=== PATIENT | female | born 1990 | race Caucasian/White ===

== ENCOUNTER → 2018-07-26 18:49 | Outpatient (CLI) | payer SELFPAY | PROVIDERS: Family Provider Student in an Organized Health Care Education/Training Program; PCP Student in an Organized Health Care Education/Training Program; Referring Provider Family Medicine; Visit Provider Family Medicine | DX: L72.9 Follicular cyst of the skin and subcutaneous tissue, unspecified (principal) | CPT/HCPCS: 87070; 87205 ==

== ENCOUNTER → 2018-09-04 13:01 | Outpatient (CLI) | payer BC, SELFPAY ==
--- NOTE | 2018-09-04 13:09 | VDLE_ITS ---
Reason For Study: Leg Pain RIGHT LEFT CFV is compressible, spontaneous, phasic, CFV is compressible, spontaneous, phasic, competent and demonstrates normal competent, and demonstrates normal augmentation. augmentation. FV is compressible, spontaneous, phasic, FV is compressible, spontaneous, phasic, competent and demonstrates normal competent and demonstrates normal augmentation. augmentation. POP V is compressible, spontaneous, phasic, POP V is compressible, spontaneous, phasic, competent and demonstrates normal competent and demonstrates normal augmentation. augmentation. T/P Trunk is compressible. T/P Trunk is compressible. PTV is compressible. PTV is compressible. RT PerV is compressible. LT PerV is compressible. SFJ is competent. SFJ is competent. GSV is competent. GSV above knee is competent. SSV is competent. GSV below knee is INCOMPETENT for greater Procedure than 0.5 seconds and measures 0.22 x 0.20 cm. Exam performed in department. SSV is competent. Interpretation Summary Deep veins of the lower extremities are bilaterally patent and compressible segmentally. There is no evidence of deep vein thrombosis on either side. Valvular competence appears intact within the proximal deep venous systems bilaterally. The greater saphenous veins appear bilaterally patent and compressible segmentally. Sapheno-femoral junctions are bilaterally competent . The right greater saphenous vein appears segmentally competent. The left greater saphenous vein appears competent above the knee. The left greater saphenous vein appears incompetent below the knee. Small saphenous veins are patent and competent bilaterally. Ordering Physician: Mitul Mendenhall Referring Physician: Tereso Lozada Performed By: Kriss Woods RVT and Student
--- OUTSIDE RECORDS SUMMARY | 2018-10-21 16:42 | XMS RPT_ITS ---
:1990 Author Organization [facility] Care Team Providers Name Role Phone Adalberto Wills Attending Unavailable Mitul Mendenhall Referring Unavailable Adalberto Wills Attending Unavailable Adalberto Wills Referring Unavailable Tereso Lozada Primary Care Unavailable ASSESSMENT, HEALTH RISK Attending Unavailable Jf France Primary Care Unavailable Tereso Lozada Attending Unavailable Jf France Primary Care Unavailable Tereso Lozada Referring Unavailable Mitul Mendenhall Attending Unavailable Mitul Mendenhall Referring Unavailable Tereso Lozada Primary Care Unavailable PROBLEMS PROBLEMS DATE TYPE CONDITION / CODE ATTENDING STATUS SOURCE 09/24/2018 Unknown R22.42 - Localized Adalberto Wills Active Cl swelling, mass and Community lump, left lower Hospital limb / Repository R22.42(ICD-10) 07/27/2018 Unknown L72.9 - Follicular Tereso Lozada Active Cl cyst of the skin Community and subcutaneous Hospital tissue, Repository unspecified / L72.9(ICD-10) PROCEDURES PROCEDURES No Procedure Records FoundRESULTS RESULTS SURGERY VISIT REPORT Observed: 09/24/2018 Status: F Source: BUENA 3:45 PM [facility] REPOSITORY [facility] [address] [place] [address] OFFICE VISIT Date of Service: 09/24/18 MR#: [id number] Acct: [id number] Name: IFRAH QUINTEROS Rep #: [id number] : 1990 Provider: Adalberto Wills MD Age/Sex: 28/F Location: [facility] Status: Signed Intake Vital Signs09/24/18 Height 5 ft 6 in 09/24/18 Weight: 289 lb 09/24/18 Body Mass Index (BMI) 46.6 Intake Visit Reasons: Lipoma L Calf Production Support Specialist Required: No Is patient in pain?: No Allergies No Known Allergies Allergy (Verified 09/24/18 14:21) Medications ibuprofen 200 mg tablet 200 mg PO TID-QID PRN 09/24/18 [History Confirmed 09/24/18] PFSH Medical History Heart palpitations (Acute) Back problem (Acute) Surgical History History of (Acute) Hx of tonsillectomy (Acute) Family History Father Hypertension Heart disease Social History Smoking Status: Never smoker second hand exposure: No alcohol intake: current alcohol intake frequency: a few times a month substance use type: does not use caffeine: Yes frequency: 1-2 times per week seatbelt use: always HPI HPI HPI: FIRAH QUINTEROS, is a 28 F who presents to the office today for surgical consultation regarding the possibility of a lipoma of the left posterior calf. The patient's primary care physician Dr. Tereso Lozada. She is recently seen Dr. Mitul Mendenhall regarding the possibility of venous insufficiency. The patient states that as long as she can remember her left lower extremity particularly her left calf has been larger than her right. She will occasionally get tingling uncomfortable sensation in the left posterior calf. She states that she finds it difficult to find appropriate fitting clothing is because of the size of her. She was seen by Dr. Mitul Mendenhall regarding venous insufficiency. On September 04, 2018 at the [facility] a bilateral lower extremity venous duplex exam was performed. There is no evidence of bilateral deep venous thrombosis. The right lower extremity great and small saphenous veins are competent. The left lower extremity shows that the great saphenous vein is incompetent for greater than 0.5 seconds below the knee but it only measures 0.22 x 0.2 cm. The small saphenous vein is competent. The patient instructs me that her mother has had lipomas diagnosed with several removed. The patient has tentatively been given the diagnosis of a potential left calf lipoma as the source of her discomfort. She states that she can feel a focal ball type mass. She has not had any detailed imaging of the left lower extremity particularly the left calf other than the very recent ultrasound where that area was inspected but at least on the duplex imaging no specific comment was made of a focal mass Additional physical findings include body weight 289 pounds with a BMI of 46.6 ROS General General: Yes weight change; no appetite, fatigue, colon cancer, breast cancer or weakness HEENT HEENT: No difficulty swallowing, eye injury, eye surgery, swollen glands or hoarseness Endo Endocrine: No thyroid disease, diabetes mellitus, thyroid cancer, Hair loss, heat intolerance or cold intolerance Skin Skin: Yes changing moles; no rash Musc Musculoskeletal: Yes back problems; no arthritis, rheumatoid arthritis, gout or joint pain Cardio Cardiovascular: No murmur, pacemaker, heart disease, atrial fibrillation, high blood pressure, heart attack, heart stent, palpitations, shortness of breat with exertion or chest pain Psych Psychiatric: No depression, anxiety or hearing voices Resp Respiratory: No shortness of breath, No sleep apnea, No cough, No COPD, No asthma, No emphysema, No wheezing Gastro Gastrointestinal: No abdominal pain, No nausea or vomiting, No diarrhea, No constipation, No blood in stool, No acid reflux, No hemorrhoids, No ulcers, No gallbladder problem, No black,tarry stools Manjeet Hematologic: No blood thinners, No blood disorders, No bleeding, No anemia, No blood clots Neuro Neurologic: No weakness, Yes tingling Exam Cardio Heart Sounds: no murmurs Extrem Other: The patient directs me to the left posterior lateral calf mid to more proximally. There appears to be diffuse enlargement of bilateral lower extremities to a significant degree. The left calf certainly is more prominent than the right. I am not able to focally palpate a distinct mass. There is no erythema. No palpable cords. No distinct tenderness upon palpation. Assessment AND Plan Problems 1. Pain of left calf M79.662 Plan 28-year-old female with concerns about tingling and discomfort and possible mass left posterior calf. Apparently according by history the patient has had enlargement of the left lower extremity greater than the right for an extended period of time. I have expressed significant concerns regarding operating on her left lower extremity particularly if a focal mass cannot be determined. I believe that she would be at increased risk for a seroma and wound breakdown and cellulitis. I believe that CT imaging of the site left calf to elucidate the possibility of a mass would be pertinent. I suppose the patient might be a candidate for plastic surgery referral if significant tissue reduction is deemed to be pertinent. She has had an opportunity to ask and have questions answered. We will pursue the CT and then provide further general surgical input as indicated. I appreciate the opportunity of assisting with her surgical care Adalberto Wills M.D., F.A.C.S. Orders Orders: Coding Level of Care Code Off vis,new,level 2 Diagnoses Pain of left calf M79.662 09/24/18 1545 <Electronically signed by Adalberto Wills MD> Date Adalberto Wills MD Cosigner Signature: Date (if applicable) CC: Mitul Mendenhall MD; Tereso Lozada MD VENOUS DUPLEX LOWER Observed: 09/04/2018 Status: F Source: BUENA EXTREMITY 9:56 PM [facility] REPOSITORY [facility] [address] [place] [address] Venous Duplex US - David Extrem 09/04/18 1311 MR#: [id number] Acct: [id number] Name: IFRAH QUINTEROS Rep #: [id number] : 1990 28 From: Mitul Mendenhall MD Attending Dr: Mitul Mendenhall MD Status: REG CLI Ordering Dr: Mitul Mendenhall MD Date: 09/04/18 Location: [facility] Sex: F C Admitted: Reason For Study: Leg Pain RIGHT LEFT CFV is compressible, spontaneous, phasic, CFV is compressible, spontaneous, phasic, competent and demonstrates normal competent, and demonstrates normal augmentation. augmentation. FV is compressible, spontaneous, phasic, FV is compressible, spontaneous, phasic, competent and demonstrates normal competent and demonstrates normal augmentation. augmentation. POP V is compressible, spontaneous, phasic, POP V is compressible, spontaneous, phasic, competent and demonstrates normal competent and demonstrates normal augmentation. augmentation. T/P Trunk is compressible. T/P Trunk is compressible. PTV is compressible. PTV is compressible. RT PerV is compressible. LT PerV is compressible. SFJ is competent. SFJ is competent. GSV is competent. GSV above knee is competent. SSV is competent. GSV below knee is INCOMPETENT for greater Procedure than 0.5 seconds and measures 0.22 x 0.20 cm. Exam performed in department. SSV is competent. Interpretation Summary Deep veins of the lower extremities are bilaterally patent and compressible segmentally. There is no evidence of deep vein thrombosis on either side. Valvular competence appears intact within the proximal deep venous systems bilaterally. The greater saphenous veins appear bilaterally patent and compressible segmentally. Sapheno-femoral junctions are bilaterally competent . The right greater saphenous vein appears segmentally competent. The left greater saphenous vein appears competent above the knee. The left greater saphenous vein appears incompetent below the knee. Small saphenous veins are patent and competent bilaterally. Ordering Physician: Mitul Mendenhall Referring Physician: Tereso Lozada Performed By: Kriss Woods RVT and Student 09/04/182155 Date Mitul Mendenhall MD CC: Mitul Mendenhall MD; Tereso Lozada MD Date Dictated: 09/04/18 1311 Date Transcribed: 09/04/182155 Routing Clerk: Signed Observed: 07/26/2018 Status: F Source: CL CULTURE, WOUND 4:25 PM [facility] REPOSITORY Gram Stain Gram Stain 1+ White Blood Cells No organisms seen Wound Culture No growth aerobically. Performed By: #### M100.1400 #### [facility] [address] [place], [place], [address] LIPID PROFILE Collected: 07/10/2018 Status: F Source: CL 8:10 AM [facility] REPOSITORY TYPE CODE TESTS RESULT OUT OF RANGE REFERENCE UNITS LAB L501.4900 200 mg/dL Normal CHOL 139 Result Comment: <200 mg/dL Desirable 200-240 mg/dL Borderline >240 mg/dL High Risk LAB L501.5000 mg/dL Normal TRIG 70 Result Comment: The drugs N-Acetylcysteine and Metamizole may falsely depress this assay. Serum Triglycerides Reference Interval Normal <150 mg/dL Borderline high 150 - 199 mg/dL High 200 - 499 mg/dL Very High > or = 500 mg/dL LAB L501.6400 mg/dL Normal HDL 44 Result Comment: The drugs N-Acetylcysteine and Metamizole may falsely depress this assay. Reference Range HDL <40 mg/dL Low HDL Cholesterol HDL >or= 60 mg/dL High HDL Cholesterol LAB L501.6500 0-130 mg/dL Normal LDL 81 LAB L501.6600 5-40 mg/dL Normal VLDL 14 Performed By: #### L500.4100, L501.0100 #### [facility] [address] [place], [address] GLUCOSE Collected: 07/10/2018 Status: F Source: CL 8:10 AM [facility] TYPE CODE TESTS RESULT OUT OF RANGE REFERENCE UNITS LAB L501.0100 74-106 mg/dL Normal GLU 82 Result Comment: Please note revised GLUCOSE reference range effective 2017. Performed By: #### L500.4100, L501.0100 #### [facility] [address] [place], [address] ALLERGIES ALLERGIES DATE TYPE / CODE NAME / CODE REACTION SEVERITY SOURCE 09/24/2018 Drug No Known Unknown [facility] Allergy/4160 Allergies/F00 Hospital 57301(SNOMED 8778509(RXNOR Repository CT) M) ENCOUNTERS ENCOUNTERS ADMIT/DISCHARGE ACCOUNT ADMITTING ENCOUNTER LOCATION SOURCE NUMBER CLASS 10/04/2018 [id number] Ambulatory Cl Cl 6 [facility] ing:CT Repository 09/24/2018/ [id number] Ambulatory BMSBuilding:B [place] 8 2 MS.WSA [facility] Repository 09/04/2018 [id number] Ambulatory Cl Cl 0 [facility] ing:CVS Repository 07/26/2018 [id number] Ambulatory [place] [facility] ing:[facility]SPEC Repository 07/10/2018 [id number] Ambulatory [place] 4 [facility] ing:HW Repository PAYERS PAYERS ENCOUNTER GUARANTOR PAYER SUBSCRIBER SOURCE 10/04/2018 IFRAH [place]ester Primary IFRAH [place] [id number] Insurance:ANTHEMPolic MILLERDOB[facility] [id number] [id number] Repository [address]Gch: (330) Date:8727-98-38[phone] () [id number], [place] [address]PT: 10/04/2018 Secondary NOT GIVENUNK Cl Insurance:SELF PAY [facility] Number: Effective Repository Date:2018-09-24 09/24/2018 IFRAH Hester Primary IFRAH K [place] [id number] [facility] Number: [id number] [id number] Repository [address]Jkt: ([phone]) Date:9439-67-37[phone] () [id number], [place] [address]NB: 09/24/2018 Secondary NOT GIVENUNK Cl Insurance:SELF PAY [facility] Number: Effective Repository Date:2018-09-21 09/04/2018 IFRAH K Primary IFRAH K Cl [id number] Insurance:ANTHEMPolic MILLERDOB: [facility] Number: [id number], [place] [id number] Repository [address]Dee: (330) Date:4949-54-45[phone] () [place], [place] [address]MV: 09/04/2018 Secondary NOT GIVENUNK [place] Insurance:SELF PAY [facility] Number: Effective Repository Date:2018-08-27 07/26/2018 IFRAH K Primary NOT GIVENUNK [place] [id number] Insurance:SELF PAY [place] Number: Effective Repository [id number]: (330) Date:2018-07-26 [phone] () 07/10/2018 IFRAH K Primary NOT GIVENUNK Cl [id number] Insurance:SELF PAY [place] Number: Effective Repository [id number]: (330) Date:2018-07-03 [phone] ()
== END ==
PROVIDERS: Family Provider Family Medicine; PCP Family Medicine; Referring Provider Surgery; Visit Provider Surgery
DX: I83.10 Varicose veins of unspecified lower extremity with inflammation (principal)
CPT/HCPCS: 93970

== ENCOUNTER → 2018-10-23 17:30 | Outpatient (CLI) | payer BC, SELFPAY ==
[2018-09-24 14:19] VITALS: BMI 46.6
--- NOTE | 2018-10-23 17:50 | MRI_ITS ---
STUDY: MRI LOWER EXTREMITY LEFT TIBIA/FIBULA WITH AND WITHOUT CONTRAST REASON FOR EXAM: Lateral proximal left calf soft tissue mass for 5-6 years with increase in size and discomfort in area. TECHNIQUE: Standardized fat and water weighted pulse sequences were obtained in all 3 orthogonal planes, post contrast administration. 10 ml of Gadavist contrast material was administered intravenously for the contrast portion of the examination. COMPARISON: None. FINDINGS: Normal visualized tibia and fibula, without a periosteal, cortical or cancellous marrow abnormality. Normal visualized anterior, lateral, and posterior calf compartments, with normal muscles, crural fascia and intermuscular septa. There is mild edema in the anterior and lateral subcutis adipose space. There is prominence of the subcutaneous fat at the posterior lateral aspect of the proximal lower leg corresponding to the skin marker (T1 axial images 15, 16) suggestive of a superficial nonencapsulated lipoma. There is no abnormal contrast enhancement. MRI/Lower Ext No Joint W/WO Cont IMPRESSION: Prominence of the subcutaneous fat corresponding to the skin marker suggestive of a superficial nonencapsulated lipoma. Mild edema in the anterior and lateral subcutis adipose space. Electronically Signed: Jonny Bernal MD at 9:15 EST Tel , Service support ,
== END ==
PROVIDERS: Family Provider Family Medicine; PCP Family Medicine; Referring Provider Surgery; Visit Provider Surgery
DX: R22.42 Localized swelling, mass and lump, left lower limb (principal)
CPT/HCPCS: 73720; A9585

== ENCOUNTER → 2021-02-11 14:37 | Outpatient (CLI) | payer BC, SELFPAY ==
[2018-09-24 14:19] VITALS: BMI 46.6
[2021-02-11 17:51] LABS: Anion Gap 4 (5-15); BUN 10 mg/dL (7-18); Chloride 107 mmol/L (98-107); Cholesterol 142 mg/dL (200); Creatinine, Serum 0.71 mg/dL (0.55-1.02); EST Glomerular Filtration Rate 102 mL/min (>60); Est Glom Filt Rate - Afr Amer 124 mL/min (>60); Glucose 78 mg/dL (74-106); High Density Lipoprotein 45 mg/dL; Potassium 4.3 mmol/L (3.5-5.1); Sodium Level 138 mmol/L (136-145); Triglycerides 79 mg/dL; Very Low Density Lipoprotein 16 mg/dL (5-40)
[2021-02-11 18:38] LABS: Vitamin D,25 Hydroxy 24.7 ng/mL
== END ==
PROVIDERS: PCP Family Medicine; Referring Provider Family Medicine; Visit Provider Family Medicine
DX: Z00.00 Encounter for general adult medical examination without abnormal findings (principal)
CPT/HCPCS: 36415; 80048; 80061; 82306; 84443

== ENCOUNTER → 2021-02-18 08:38 | Outpatient (CLI) | payer BC, SELFPAY ==
[2018-09-24 14:19] VITALS: BMI 46.6
== END ==
PROVIDERS: PCP Family Medicine; Referring Provider Family Medicine; Visit Provider Family Medicine
DX: R13.10 Dysphagia, unspecified (principal)